=== PATIENT | female | born 1965 ===

== ENCOUNTER 2021-12-15 09:00 | Inpatient (IN) | payer OTHER ==
[~2021-12-15] VITALS: Ht 165.1 cm; Wt 104.3 kg
[2021-12-15] MEDS ORDERED: CLONAZEPAM1 MG PO (11:21)
[2021-12-15] MEDS ORDERED: GABAPENTIN800 M1 PO (11:22)
[2021-12-15] MEDS ORDERED: CYMBALTA60 MG PO (11:22)
[2021-12-15] MEDS ORDERED: LIPITOR20 MG PO (11:23)
[2021-12-15] MEDS ORDERED: PEPCID20 MG PO (11:23)
[2021-12-15] MEDS ORDERED: HYZAAR 100-251 EACH PO (11:23)
[2021-12-15] MEDS ORDERED: WELLBUTRIN XL300 MG PO (11:23)
[2021-12-15] MEDS ORDERED: ABILIFY2 MG PO (11:24)
[2021-12-16] MEDS ORDERED: ARIPIPRAZOLE5 MG (11:21)
[2021-12-16] MEDS ORDERED: AMITRIPTYLINE H10 MG (11:21)
[2021-12-16] MEDS ORDERED: FAMOTIDINE40 MG (11:22)
[2021-12-16] MEDS ORDERED: MELOXICAM15 MG (11:22)
== END 2021-12-18 11:57 | disposition home or self-care (01) | DRG 743 ==
LOC: O/R 12-16 07:21 → SURH 12-16 09:00 → SURG 12-16 23:47
PROVIDERS: ADMIT Obstetrics & Gynecology Gynecologic Oncology; ATTEND Obstetrics & Gynecology Gynecologic Oncology
PROC: 0UT74ZZ Resection of Bilateral Fallopian Tubes, Percutaneous Endoscopic Approach (ICD-10-PCS; 2021-12-16)
PROC: 0UT24ZZ Resection of Bilateral Ovaries, Percutaneous Endoscopic Approach (ICD-10-PCS; 2021-12-16)
PROC: 0DBW4ZZ Excision of Peritoneum, Percutaneous Endoscopic Approach (ICD-10-PCS; 2021-12-16)
PROC: 3E1M38Z Irrigation of Peritoneal Cavity using Irrigating Substance, Percutaneous Approach (ICD-10-PCS; 2021-12-16)
PROC: 0UT94ZZ Resection of Uterus, Percutaneous Endoscopic Approach (ICD-10-PCS; principal; 2021-12-16 11:45)
DX: N80.0 Endometriosis of uterus (principal); N83.291 Other ovarian cyst, right side; Z20.822 Contact with and (suspected) exposure to COVID-19